=== PATIENT | male | born 1940 | race Caucasian/White ===

== ENCOUNTER → 2018-10-26 | Outpatient (CLI) | payer OTHER, BC ==
[~2018-10-26] MED LIST: IOPAMIDOL (ISOVUE-300) 100 ML BTL ONE
== END ==
LOC: CIMAGING 08:16
PROVIDERS: ATTEND Internal Medicine Gastroenterology
DX: K76.9 Liver disease, unspecified (principal); R19.06 Epigastric swelling, mass or lump; Z85.01 Personal history of malignant neoplasm of esophagus
CPT/HCPCS: 74177; Q9967